=== PATIENT | female | born 1960 | race Caucasian/White ===

== ENCOUNTER 2017-10-12 10:52 | Observation (INO) | payer SELFPAY ==
[2017-10-12] MEDS ORDERED: Nitroglycerin 2% Ointment 1 INCH/1 GM Packet ONE (11:19)
[2017-10-12] MEDS ORDERED: hydrALAZINE 20 MG/ML VIAL ONE (11:21)
[2017-10-12 11:26] LABS: #Eosinphils 0.1 thou/uL (0.0-0.7); #Lymphocytes 1.9 thou/uL (1.20-3.40); #Monocytes 0.5 thou/uL (0.11-0.59); %Basophils 0.4 % (0.0-1.0); %Eosinophils 1.6 % (0.0-10.0); %Lymphocytes 29.2 % (21.0-51.0); %Monocytes 7.7 % (0.0-10.0); Hemoglobin 16.2 g/dL (12.0-16.0); Mean Corpuscular HGB CONC 34.6 g/dL (32.0-36.0); Mean Corpuscular Hemoglobin 32.9 pg (27.0-31.0); Mean Corpuscular Volume 95.1 fL (78.0-98.0); Mean Platelet Volume 10.6 fL (7.4-10.4); Platelet Count 210 thou/uL (130-400); RBC Distribution Width 11.6 % (11.5-14.5); Red Blood Cell (RBC) Count 4.92 mill/uL (4.20-5.40); White Blood Cell (WBC) Count 6.5 thou/uL (4.8-10.8)
--- NOTE | 2017-10-12 11:31 | CT ---
CT OF THE BRAIN WITHOUT CONTRAST: Date: 10/12/17 COMPARISON: None. HISTORY: Facial drooping and severe hypertension. TECHNIQUE: Multiple contiguous axial images were obtained in a CT of the brain without contrast. FINDINGS: The brain is normal in morphology and attenuation without focal lesions or confluent areas of infarct ion. There is no evidence of hydrocephalus, intracranial hemorrhage, or extra-axial fluid collection. The calvarium and overlying soft tissues are unremarkable. The visualized paranasal sinuses and masto id air cells are well aerated. IMPRESSION: No evidence of acute intracranial abnormality. POS: [facility]
[2017-10-12 11:44] LABS: ALT (SGPT) 14 U/L (8-55); AST (SGOT) 17 U/L (5-34); Albumin 4.5 g/dL (3.5-5.0); Alkaline Phosphatase 87 U/L (40-150); Anion Gap 12 mmol/L (10-20); BUN (Urea Nitrogen) 10 mg/dL (9.8-20.1); Bilirubin, Total 0.6 mg/dL (0.2-1.2); CK (CPK) 27 U/L (29-168); Calc. Creatinine Clearance 0 mL/min (70-130); Calcium 10.4 mg/dL (7.8-10.44); Carbon Dioxide 26 mmol/L (22-29); Chloride 106 mmol/L (98-107); Estimated GFR-MDRD 60; Glucose 99 mg/dL (70-105); Potassium 4.3 mmol/L (3.5-5.1); Protein, Total 7.5 g/dL (6.0-8.3); Sodium 140 mmol/L (136-145)
[2017-10-12 11:49] LABS: CKMB 0.5 ng/mL (0-6.6); Troponin I Less than 0.010 ng/mL (< 0.028)
[2017-10-12 11:59] LABS: Bilirubin Negative (Negative); Blood, Urine Negative (Negative); Clarity CLEAR (Clear); Glucose, Urine (Dipstick) Negative (Negative); Leukocyte Negative (Negative); Nitrite Negative (Negative); Protein, Urine (Dipstick) Negative (Neg-Trace); Urobilinogen 0.2 mg/dL (0.2-1.0); pH, Urine 7.5 (5.0-9.0)
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
[2017-10-12] MEDS ORDERED: hydrALAZINE 20 MG/ML VIAL SLOW IVP PRN (16:28)
[2017-10-12] MEDS ORDERED: Sodium Chloride 0.65% Nasal 44 ML BOT EA NARE PRN (16:28)
[2017-10-12] MEDS ORDERED: Chloraseptic Spray 180 ml Bottle PO PRN (16:28)
[2017-10-12] MEDS ORDERED: Artificial Tears 18 DROP/0.9 ML EA EYE PRN (16:28)
[2017-10-12] MEDS ORDERED: Zolpidem Tartrate 5 MG TAB PO PRN (16:28)
[2017-10-12] MEDS ORDERED: Loperamide HCl 2 MG CAP PO PRN (16:28)
[2017-10-12] MEDS ORDERED: Senokot 8.6 MG TAB PO PRN (16:28)
[2017-10-12] MEDS ORDERED: Mag-Al 1200 mg/1200 mg/30 ML UDCUP PO PRN (16:28)
[2017-10-12] MEDS ORDERED: Ondansetron HCl/PF 4 MG/2 ML Vial IVP PRN (16:28)
[2017-10-12] MEDS ORDERED: Loratadine 10 MG TAB PO PRN (16:28)
[2017-10-12] MEDS ORDERED: Diabetic Tussin 200 MG/10 ML UDCUP PO PRN (16:28)
[2017-10-12] MEDS ORDERED: Ondansetron ODT 4 MG TAB PO PRN (16:28)
[2017-10-12] MEDS ORDERED: Milk Of Magnesia 30 ML UDCUP PO PRN (16:28)
[2017-10-12] MEDS ORDERED: Acetaminophen 325 MG TAB PO PRN (16:28)
[2017-10-12] MEDS ORDERED: HYDROcodone/Acetaminophen 5/325 mg Tablet PO PRN (16:28)
[2017-10-12] MEDS ORDERED: Eucerin (Mineral Oil/Petrolatum,White) 30 gm Jar TOP PRN (16:28)
[2017-10-12 17:18] VITALS: BMI 30.2
[2017-10-12] MEDS: Famotidine 20 MG TAB PO SCH (20:38)
[2017-10-12] MEDS ORDERED: Atorvastatin Calcium 10 MG TAB PO SCH (21:00)
--- NOTE | 2017-10-12 21:17 | CON ---
DATE OF CONSULTATION: 10/12/2017 CONSULTING PHYSICIAN: Hospitalist Service. IMPRESSION: 1. Left Sweeney's palsy. 2. Uncontrolled hypertension. PLAN: 1. Prednisone 20 mg per day for 1 week. 2. Lisinopril 10 mg per day and titrate as needed to bring the blood pressure under control. 3. Office followup. HISTORY OF PRESENT ILLNESS: Ms. Rodríguez is a 57-year-old woman with a known history of hypertension. She was not on any medication due to financial issues. She started noticing some problems with the left side of her face yesterday. She decided to go to the hospital for evaluation. She was thought to have facial droop and was admitted for further evaluation. Initial CT scan of the brain is unrem arkable. She is noted to be significantly hypertensive with initial blood pressure 214/135. She was given some hydralazine in the emergency room and her pressure dropped precipitously. She was noted to be in normal sinus rhythm by EKG or laboratory studies were all unremarkable. Lipid panel was not performed. She has noticed that the weakness of left side of the face has gotten worse. She denies any headache, nausea, vomiting, vertigo, hearing loss, difficulty swallowing, lateralized weakness o r numbness of the extremities. PAST MEDICAL HISTORY: Hypertension. ALLERGIES: None reported. SOCIAL HISTORY: Single mother. She is unemployed at this point. There is no illicit drug use. REVIEW OF SYSTEMS: Otherwise, negative. PHYSICAL EXAMINATION: GENERAL: She is a well-nourished middle-aged woman, in no acute distress. HEENT: Pupils are equal and reactive. Conjunctivae are clear. Oropharynx is clear. NECK: Supple. EXTREMITIES: No cyanosis, clubbing or edema. NEUROLOGIC: She is alert and appropriate. Her speech is fluent and clear. There is left facial wea kness involving both the forehead and eye closure. Motor exam in the extremities was unremarkable fo r any deficits. Sensation is intact to touch. She can walk independently. No abnormal movements we re seen. SUMMARY: This is a middle-aged woman who has developed Sweeney's palsy on the left side. This brought her blood pressure to attention. I would get the pressure under control and be happy to follow up wi th her as an outpatient.
[2017-10-13 05:47] LABS: Cardiac Risk 3.3 (Less than 4.5)
[2017-10-13 07:58] VITALS: TEMP 98.6
[2017-10-13] MEDS ORDERED: Aspirin 325 mg Enteric Coated Tablet PO SCH (09:00)
[2017-10-13] MEDS ORDERED: Lisinopril 10 MG TAB PO SCH (09:00)
[2017-10-13] MEDS ORDERED: predniSONE 20 MG TAB PO SCH (09:00)
[2017-10-13] MEDS: Famotidine 20 MG TAB PO SCH (10:17)
--- NOTE | 2017-10-13 10:33 | DIS ---
DATE OF ADMISSION: 10/12/2017 DATE OF DISCHARGE: 10/13/2017 PRIMARY CARE PHYSICIAN: [facility] call admission. DISCHARGE DISPOSITION: Home. PRIMARY DISCHARGE DIAGNOSIS: Left-sided Sweeney's palsy. SECONDARY DISCHARGE DIAGNOSES: Dyslipidemia, hypertension, obesity with body mass index 30. PRIMARY PROCEDURE/OPERATION: None. RADIOLOGICAL INVESTIGATION: CT brain normal. SIGNIFICANT LABORATORY DATA: WBC 6.5, hemoglobin 16.2, platelet 210. Sodium 140, potassium 4.3, BUN 10 and creatinine 0.96. LFT normal. Cardiac enzymes negative. BNP 22.1. LDL 119. Urinalysis nor mal. DISCHARGE MEDICATIONS: Prednisone 20 mg p.o. daily for 7 days, Pepcid 20 mg p.o. b.i.d. for 7 days, aspirin 81 mg p.o. daily, Lipitor 10 mg p.o. at bedtime, lisinopril 10 mg p.o. daily. CONTRAINDICATIONS: None. CODE STATUS: FULL CODE. INPATIENT CONSULTANTS: Dr. Lazarus Meyers neurologist was consulted while in hospital. TEST RESULTS PENDING ON DISCHARGE: None. ALLERGIES: No known drug allergy. DISCHARGE PLAN: Post hospital, patient will follow up with primary care physician in 1 week. The tuan cervantes will follow up with Neurology as instructed. HOSPITAL COURSE: A 57-year-old female who was admitted by me. Please see my HPI for further detail. The patient was having left-sided facial droop. Initially in the emergency room, CT brain was nega tive. The patient and patient's family member was concerned about stroke. Patient was admitted to s troke floor, but when we examined thoroughly, her presentation was consistent with left-sided Sweeney's palsy. Neurology saw this patient and they agreed with left-sided Sweeney's palsy diagnosis. Initially we were planning to do MRI, echo and carotid Doppler, but that was not required because no diagnosis of transient ischemic attack. We are not suspecting or treating as a TIA. Dr. Qiu recommended to continue prednisone for 7 days, which was prescribed upon discharge. As this patient has hyperten camron and dyslipidemia history and she was not having any local primary care physician, we prescribed Lipitor and lisinopril. She reassured me that she will make appointment with primary care physician in this town within a week. Today, I have seen this patient and examined at bedside today. PHYSICAL EXAMINATION: VITAL SIGNS: Currently, temperature 98.0, pulse 68, respiratory rate 20, saturation 97% on room air, blood pressure 136/92 LUNGS: Clear to auscultation without any rhonchi or rales. CARDIAC: S1, S2 regular without any murmur. ABDOMEN: Soft and benign without any tenderness. EXTREMITIES: No edema. NEUROLOGIC: Patient's examination consistent with a left-sided facial droop and it is lower motor ne uron type consistent with Sweeney's palsy. Otherwise, neurological examination is completely normal. All new medication prescription given to her pharmacy and patient is medically stable for discharge t gissel.
[2017-10-13 11:02] VITALS: BP 162/93
== END 2017-10-13 10:09 | disposition home or self-care (01) ==
LOC: ERS 10:52 → 2SE 12:32
PROVIDERS: ADMIT Internal Medicine; ATTEND Internal Medicine
DX: G51.0 Bell's palsy (principal); I10 Essential (primary) hypertension; E78.5 Hyperlipidemia, unspecified; E66.9 Obesity, unspecified; Z68.30 Body mass index [BMI] 30.0-30.9, adult; Z79.82 Long term (current) use of aspirin; Z79.899 Other long term (current) drug therapy
CPT/HCPCS: 36415; 70450; 80053; 80061; 81003; 82550; 82553; 83880; 84484; 85025; 96361; 96374; G0378; J0360; J7506

== ENCOUNTER 2019-05-14 13:48 | Observation (INO) | payer OTHER, SELFPAY ==
[~2019-05-14 13:48] MED LIST: Bupivacaine HCl 0.5%/Epinephrine 1:200,000/PF 30 ml Vial ONE; Dexamethasone 20 MG/5 ML VIAL ONE; Esmolol 100 MG/10 ML VIAL ONE; Lidocaine 1% PF 5 ML VIAL ONE; Ondansetron PF 4 MG/2 ML Vial ONE; PROPOFOL 200 MG/20 ML VIAL ONE; Succinylcholine Chloride 20 MG/ML 10 ml SYRINGE FS ONE
[2019-05-14] MEDS ORDERED: Adacel (T-DAP) 0.5 ML SYRINGE ONE (14:11)
[2019-05-14] MEDS ORDERED: Ondansetron PF 4 MG/2 ML Vial ONE (14:11)
[2019-05-14] MEDS ORDERED: Fentanyl 100 MCG/2 ML VIAL ONE (14:11)
[2019-05-14 14:28] LABS: #Basophils 0.1 thou/uL (0.0-0.2); #Eosinphils 0.1 thou/uL (0.0-0.7); #Lymphocytes 3.1 thou/uL (1.20-3.40); #Monocytes 0.6 thou/uL (0.11-0.59); #Neutrophils 3.7 thou/uL (1.40-6.50); %Basophils 1.1 % (0.0-1.0); %Eosinophils 1.1 % (0.0-10.0); %Lymphocytes 41.1 % (21.0-51.0); %Monocytes 8.2 % (0.0-10.0); %Neutrophils 48.6 % (42.0-75.0); Mean Corpuscular HGB CONC 33.7 g/dL (32.0-36.0); Mean Corpuscular Hemoglobin 31.6 pg (27.0-31.0); Mean Corpuscular Volume 93.9 fL (78.0-98.0); Platelet Count 206 thou/uL (130-400); RBC Distribution Width 11.8 % (11.5-14.5); Red Blood Cell (RBC) Count 4.43 mill/uL (4.20-5.40); White Blood Cell (WBC) Count 7.6 thou/uL (4.8-10.8)
[2019-05-14 14:33] LABS: PTT 25.3 SEC (22.9-36.1)
[2019-05-14] MEDS ORDERED: Morphine 4 MG/ML VIAL ONE (14:45)
[2019-05-14 14:49] LABS: ALT (SGPT) 42 U/L (8-55); AST (SGOT) 27 U/L (5-34); Albumin 4.4 g/dL (3.5-5.0); Alkaline Phosphatase 84 U/L (40-110); Anion Gap 16 mmol/L (10-20); BUN (Urea Nitrogen) 14 mg/dL (9.8-20.1); Bilirubin, Total 0.5 mg/dL (0.2-1.2); Calc. Creatinine Clearance 0 mL/min (70-130); Calcium 9.3 mg/dL (7.8-10.44); Carbon Dioxide 23 mmol/L (22-29); Chloride 105 mmol/L (98-107); Estimated GFR-MDRD 59; Globulin 2.3 g/dL (2.4-3.5); Glucose 131 mg/dL (70-105); Potassium 3.6 mmol/L (3.5-5.1); Protein, Total 6.7 g/dL (6.0-8.3); Sodium 140 mmol/L (136-145)
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
[2019-05-14] MEDS ORDERED: Ketamine 50 MG/ML (10ML VIAL) ONE (15:17)
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
--- NOTE | 2019-05-14 15:39 | CT ---
CHEST AND ABDOMEN AND PELVIC CT SCAN WITH IV CONTRAST THORACIC SPINE CT SCAN WITH IV CONTRAST LIMITED LUMBAR SPINE CT SCAN WITH IV CONTRAST LIMITED: FINDINGS: CHEST, ABDOMEN, AND PELVIC CT SCAN WITH IV CONTRAST: Tiny 0.2 cm probable pleural-based nodule in the right upper lobe laterally. No mediastinal hematoma . The aorta appears unremarkable. No pleural effusion or pericardial effusion. Liver, gallbladder, pancreas, spleen, and adrenal glands were unremarkable. The kidneys are unremark able without evidence for renal calculus or acute obstruction. Normal-appearing appendix. No feli dence for free intraperitoneal fluid within the abdomen or pelvis. No retroperitoneal hematoma. The re are some generalized lumbar spine disk-osteophytosis changes with some variable severity stenosis. IMPRESSION: No significnat posttraumatic process in the chest, abdomen, or pelvis. THORACIC SPINE CT SCAN WITH IV CONTRAST: IMPRESSION: Minimal spondylosis. No fracture or dislocation. LUMBAR SPINE CT SCAN WITH IV CONTRAST LIMITED: FINDINGS/IMPRESSION: Degenerative and disk desiccation changes with some spondylosis and some lumbar spine stenotic change s most marked at L4-L5, L3-L4. Findings were discussed with Mayo in the emergency room at 3:10 p.m. CODE CR POS: [facility]
[2019-05-14] MEDS ORDERED: Dextrose 5% in Water 1,000 ML IV PRN (16:04)
[2019-05-14] MEDS ORDERED: Morphine 2 MG/ML SYRINGE SLOW IVP PRN (16:04)
[2019-05-14] MEDS ORDERED: Dextrose 50% Abboject 50 ML SYRINGE SLOW IVP PRN (16:04)
[2019-05-14] MEDS ORDERED: HumaLOG 300 UNITS/3 ML VIAL SC PRN (16:04)
[2019-05-14] MEDS ORDERED: hydrALAZINE 20 MG/ML VIAL SLOW IVP PRN (16:04)
[2019-05-14] MEDS ORDERED: traMADol HCl 50 MG TAB PO PRN (16:06)
[2019-05-14] MEDS ORDERED: Ibuprofen 600 MG TAB PO PRN (16:07)
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
[2019-05-14] MEDS ORDERED: Sodium Chloride 0.9% 1,000 ML IV SCH (16:15)
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
[2019-05-14] MEDS ORDERED: Promethazine HCl 25 MG/ML VIAL SLOW IVP PRN ×2 (19:50→22:03)
[2019-05-14] MEDS ORDERED: Promethazine HCl 25 MG/ML VIAL IM PRN ×2 (19:50→22:03)
[2019-05-14] MEDS ORDERED: Ondansetron HCl/PF 4 MG/2 ML Vial IVP PRN ×2 (19:50→22:03)
[2019-05-14] MEDS ORDERED: Promethazine HCl 25 MG/ML VIAL ONE (20:46)
[2019-05-14] MEDS ORDERED: hydrALAZINE 20 MG/ML VIAL ONE (20:51)
[2019-05-14 21:55] LABS: Lactic Acid 2.5 mmol/L (0.5-2.2)
[2019-05-14] MEDS: Acetaminophen 500 MG TAB PO SCH ×2 (22:05→22:23)
[2019-05-14] MEDS: traMADol HCl 50 MG TAB PO SCH ×2 (22:06→23:44)
[2019-05-14] MEDS: CEFAZOLIN 2 GM in Premix Bag 1 BAG IVPB SCH (22:22)
[2019-05-14] MEDS: Gabapentin 300 MG CAP PO SCH (22:23)
[2019-05-14] MEDS: Famotidine 20 MG TAB PO SCH (22:23)
[2019-05-14] MEDS: Senokot S 8.6-50 MG TAB PO SCH (22:24)
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
[2019-05-15 00:29] VITALS: BMI 32.5
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
[2019-05-15] MEDS: Acetaminophen 500 MG TAB PO SCH ×2 (03:45→09:09)
[2019-05-15] MEDS: CEFAZOLIN 2 GM in Premix Bag 1 BAG IVPB SCH (05:52)
[2019-05-15] MEDS: traMADol HCl 50 MG TAB PO SCH ×2 (05:52→11:32)
[2019-05-15] MEDS ORDERED: Polyethylene Glycol 3350 17 GM Packet PO SCH (09:00)
[2019-05-15] MEDS: Famotidine 20 MG TAB PO SCH (09:08)
[2019-05-15] MEDS: Senokot S 8.6-50 MG TAB PO SCH (09:08)
[2019-05-15] MEDS: Gabapentin 300 MG CAP PO SCH (09:09)
[2019-05-15 10:56] VITALS: BP 117/70; TEMP 98.6
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
--- NOTE | 2019-05-21 05:53 | PQF ---
[facility] POST DISCHARGE CLINICAL DOCUMENTATION IMPROVEMENT CLARIFICATION FORM l Todays Date: 05/21/19 l Patients Name TRINH MURCIA l l Admit Date 05/14/19 l Disch Date 05/15/19 Top Lift Compresser Name Manuelito Keyes Email: [email or web address] Cell: [phone] To be completed by Top Lift Compresser: Present Clinical Indicators - Signs / Symptoms Results and Location in Medical Record [ ] Documentation of: [ ] [ ] Documentation of: [ ] [ ] Documentation of: [ ] [ ] Documentation of: [ ] [ ] Risks [ ] [ ] [ ] Treatment [ ] Traumatic wound ulnar side of right forearm Query for size of repair of right forearm wound [ ] [ ] To be completed by Physician: DEXTER BROWN The documentation in this patients record requires clarification to ensure coding compliance and accuracy. Check the appropriate box and include in your discharge summary. [ ] [ ] [ ] [ ] Please check this box if this does not apply to this patient [ ] Unable to determine [ ] Other diagnosis: Review the following information and exercise your independent professional judgment in responding to the clarification. Based upon the clinical findings, risk factors, and treatment, please clarify if you are treating one of the above probable or suspected diagnoses. Physician Signature: Date Time MTDD
== END 2019-05-15 13:35 | disposition home or self-care (01) ==
LOC: ERS 13:48 → SDC 16:39 → SURG A 20:08
PROVIDERS: ADMIT Surgery; ATTEND Surgery
PROC: 0PSH04Z Reposition Right Radius with Internal Fixation Device, Open Approach (ICD-10-PCS; principal; 2019-05-14)
PROC: 3E0T3BZ Introduction of Anesthetic Agent into Peripheral Nerves and Plexi, Percutaneous Approach (ICD-10-PCS; 2019-05-14)
DX: S52.501B Unspecified fracture of the lower end of right radius, initial encounter for open fracture type I or II (principal); S51.801A Unspecified open wound of right forearm, initial encounter; G89.18 Other acute postprocedural pain; I10 Essential (primary) hypertension; M47.816 Spondylosis without myelopathy or radiculopathy, lumbar region; M48.061 Spinal stenosis, lumbar region without neurogenic claudication; Z91.19 Patient's noncompliance with other medical treatment and regimen; V49.50XA Passenger injured in collision with unspecified motor vehicles in traffic accident, initial encounter
CPT/HCPCS: 25605; 36415; 70450; 71260; 72125; 74177; 76000; 80053; 83605; 85025; 85610; 85730; 90471; 90715; 93005; 96361; 96365; 96366; 96374; 96375; 99152; C1713; G0378; J0360; J0670; J0690; J1100; J2001; J2270; J2405; J2550; J2704; J3010